=== PATIENT | male | born 1955 | race Caucasian/White ===

== ENCOUNTER → 2017-02-22 | Outpatient (CLI) | payer BC ==
[~2017-02-22] MED LIST: ALPR0.5T; ASPI-535; ATOR40TA21; CARV10CP; CLOP75TA19; ESOM40CA; OXYC10TA63; OXYC5CAP17; RAMI2.5C31; WARF5TAB72
--- NOTE | 2017-02-22 18:42 | RADRPT ---
PROCEDURE: XR Pelvis and Hips. CLINICAL INDICATION: Pelvic pain. Bilateral hip pain. TECHNIQUE: Five views. Frontal pelvis. Frontal and lateral right hip. Frontal and lateral left hip. COMPARISON: No prior studies are available for comparison. FINDINGS: There is no fracture or dislocation. The soft tissues are normal. There are moderate degenerative changes of the right hip with joint space narrowing and osteophytes. There is a left hip total arthroplasty which appears satisfactory. There is no fracture, dislocat ion, or loosening. There is no lytic or blastic lesion. The upper pelvis is not included on the images. IMPRESSION: 1. Moderate degenerative changes of the right hip. 2. Left hip total arthroplasty which appears satisfactory. 3. Otherwise unremarkable study. RPTAT: QQ .Kaleb Regalado MD, Date Time Electronically viewed and signed by .Kaleb Regalado MD, on 02/22/2017 18:42 .R/
== END | disposition home or self-care (01) ==
LOC: HKI 13:04
PROVIDERS: ATTEND Orthopaedic Surgery
DX: M25.551 Pain in right hip (principal); M16.11 Unilateral primary osteoarthritis, right hip; Z96.642 Presence of left artificial hip joint
CPT/HCPCS: 73523; G0463